=== PATIENT | male | born 2000 ===

== ENCOUNTER 2019-06-24 06:35 | Emergency (ER) | payer OTHER ==
[2019-06-24 07:35] VITALS: BP 145/97; PULSE 76; RESP 16; TEMP 98.1; O2SAT 96
[2019-06-24] MEDS ORDERED: ACETAMINOPHEN 325 MG PO ONE (08:10)
[2019-06-24] MEDS ORDERED: ACETAMI/HYDROCO 325/10 TAB PO ONE (08:10)
[2019-06-24] MEDS ORDERED: APAP/HYDROCODONE 1 EACH TABLET ONE (08:37)
[2019-06-24] MEDS ORDERED: ACETAMINOPHEN 325 MG ONE (08:38)
== END 2019-06-24 08:50 | disposition home or self-care (01) ==
LOC: ED 06:35
DX: M23.92 Unspecified internal derangement of left knee (principal); M25.562 Pain in left knee; Y93.67 Activity, basketball; M25.462 Effusion, left knee
CPT/HCPCS: 73562; 99282; 99283; A9270-GY